=== PATIENT | male | born 1955 | race Caucasian/White ===

== ENCOUNTER 2024-11-02 11:43 | Inpatient (IN) | payer BC, MEDICARE, SELFPAY ==
[2024-11-01 11:43] VITALS: BP 120/106
[2024-11-01 11:46] VITALS: BP 173/87
--- NOTE | 2024-11-01 11:47 | ED.GENMED ---
ED Provider Triage
<Fernando Velazquez PA-C - Last Filed: 11/01/24 11:48>
-
Patient seen by provider in Triage?: Seen in Triage
68-year-old male presents via EMS from home with flulike symptoms for 6 days with associated weakness. No fever but patient notes a cough decreased appetite but no nausea or vomiting. He denies chest pain.
Vital signs are stable through triage. Will initiate work with basic labs chest x-ray COVID and flu testing
Seen by healthcare provider at triage but warrants further assessment
History of Present Illness
<Fernando Velazquez PA-C - Last Filed: 11/01/24 11:48>
General
Chief Complaint: Weakness
Time Seen by Provider: 11/01/24 16:30
<Ariana Horne NP - Last Filed: 11/01/24 16:50>
General
Source: patient and spouse
Exam Limitations: none
Nursing documentation reviewed up to this point in time: agreed with
History of Present Illness
History of Present Illness:
Patient to ED with complian of weakness, SOB, cough, fever. Symptoms started on Monday. states they were sure it was influenza as his daughter was recently diagnosed. Today he has been confused, weak, unable to transfer without max
assist. Brought to ED for eval.
Past History
<Ariana Horne NP - Last Filed: 11/01/24 16:50>
Past History
ED Past Medical History: None
Social History
Tobacco: Smoker (1ppd)
Alcohol: Daily (>3 beers/day)
Drug: Marijuana (smokes)
Personal:
Living: with family
Employment: Retired
Phy Exam
<Ariana Horne NP - Last Filed: 11/01/24 16:50>
General Physical Exam
General Presentation: moderate distress
General age: appears stated age
General Skin: warm and dry
General Habitus: normal
General Mental: alert
General Hydration: appears well hydrated
Cardiovascular Exam
Cardiovascular Exam: regular rate/rhythm
Pulmonary Exam
Pulmonary Exam: chest non tender
Breath Sounds: Crackles: left lower and right lower
Gastrointestinal Exam
Gastrointestinal Exam: normal bowel sounds, non tender and soft
Musculoskeletal Exam
Musculoskeletal Exam: full ROM and neuro vasc intact
Skin Exam
Skin Exam: normal color, warm/dry and no rash
Psychiatric Exam
Psychiatric Exam: normal mood/affect
Course
<Fernando Velazquez PA-C - Last Filed: 11/01/24 11:48>
Orders/Labs/Results
Orders:
Orders
11/01/24 11:46
CR Chest - 2 Views Urgent
Comment:
Reason For Exam: cough
11/01/24 11:58
COVID-19 Antigen Urgent
Source: Nasal Swab
Complete Blood Count/With Diff Urgent
Comprehensive Metabolic Panel Urgent
Influenza A+B Rapid Molecular Urgent
TOD Source: Nasal Swab
Specimen Description:
11/01/24 16:38
Azithromycin 500 mg/250 ml [Zithromax Infusion] 500 mg in 250 ml IV NOW
CefTRIAXone [Rocephin] 1,000 mg IV NOW STA
11/01/24 16:40
0.9% Sodium Chloride 1000 ml [Nss] 1,000 ml IV BOLUS
Abnormal Lab Results
11/01/24
11:58
Abs Immat Gran (auto) 0.1 H 10^3/uL
(0-0.05)
Absolute Neuts (auto) 6.6 H 10^3/uL
(1.4-6.5)
Absolute Lymphs (auto) 0.6 L 10^3/uL
(1.2-3.4)
Immature Gran % 0.8 H %
(0-0.5)
Neutrophils % 84.6 H %
(42.2-75.2)
Lymphocytes % 7.8 L %
(20.5-51.1)
Sodium 132 L mmol/L
(135-145)
Carbon Dioxide 20 L mmol/L
(22-30)
Creatinine 0.5 L mg/dL
(0.7-1.3)
Glucose 113 H mg/dl
(70-99)
AST 165 H U/L
(17-59)
ALT 92 H U/L
(0-50)
Total Protein 6.2 L g/dl
(6.3-8.2)
11/01/24 11:58
11/01/24 11:58
Vital Signs
Initial and Last Documented VS:
Initial Vital Signs
Temp Pulse Resp BP Pulse Ox
98.2 F 81 18 173/87 94
11/01/24 11:46 11/01/24 11:46 11/01/24 11:46 11/01/24 11:46 11/01/24 11:46
Last Documented Vital Signs
Temp Pulse Resp BP Pulse Ox
98.8 F 82 18 114/86 92
11/01/24 16:01 11/01/24 16:01 11/01/24 16:01 11/01/24 16:01 11/01/24 16:01
<Ariana Horne COAL DELIVERER - Last Filed: 11/01/24 16:50>
Orders/Labs/Results
Orders:
Orders
11/01/24 11:46
CR Chest - 2 Views Urgent
Comment:
Reason For Exam: cough
11/01/24 11:58
COVID-19 Antigen Urgent
Source: Nasal Swab
Complete Blood Count/With Diff Urgent
Comprehensive Metabolic Panel Urgent
Influenza A+B Rapid Molecular Urgent
TOD Source: Nasal Swab
Specimen Description:
11/01/24 16:38
Azithromycin 500 mg/250 ml [Zithromax Infusion] 500 mg in 250 ml IV NOW
CefTRIAXone [Rocephin] 1,000 mg IV NOW STA
11/01/24 16:40
0.9% Sodium Chloride 1000 ml [Nss] 1,000 ml IV BOLUS
Abnormal Lab Results
11/01/24
11:58
Abs Immat Gran (auto) 0.1 H 10^3/uL
(0-0.05)
Absolute Neuts (auto) 6.6 H 10^3/uL
(1.4-6.5)
Absolute Lymphs (auto) 0.6 L 10^3/uL
(1.2-3.4)
Immature Gran % 0.8 H %
(0-0.5)
Neutrophils % 84.6 H %
(42.2-75.2)
Lymphocytes % 7.8 L %
(20.5-51.1)
Sodium 132 L mmol/L
(135-145)
Carbon Dioxide 20 L mmol/L
(22-30)
Creatinine 0.5 L mg/dL
(0.7-1.3)
Glucose 113 H mg/dl
(70-99)
AST 165 H U/L
(17-59)
ALT 92 H U/L
(0-50)
Total Protein 6.2 L g/dl
(6.3-8.2)
11/01/24 11:58
11/01/24 11:58
Vital Signs
Initial and Last Documented VS:
Initial Vital Signs
Temp Pulse Resp BP Pulse Ox
98.2 F 81 18 173/87 94
11/01/24 11:46 11/01/24 11:46 11/01/24 11:46 11/01/24 11:46 11/01/24 11:46
Last Documented Vital Signs
Temp Pulse Resp BP Pulse Ox
98.8 F 82 18 114/86 92
11/01/24 16:01 11/01/24 16:01 11/01/24 16:01 11/01/24 16:01 11/01/24 16:01
<Ariana Horne NP - Last Filed: 11/01/24 16:50>
*Radiology
Radiology exam reviewed: radiology read reviewed
*Pulse Oximetry
Patient hypoxic: no
*Critical Care Note
Total Time (30-74mins, 75-104mins- exclusive of procedures): Not Applicable
<Ariana Horne NP - Last Filed: 11/01/24 16:50>
Update Note
Update Note:
Patient to ED with complaint of fever, cough, weakness. Symptoms started on Monday. Exposure to Influenza by daughter. Influenza pos today, symptoms present for almost a week now, tamiflu not indicated. reports increased weakness, periods
of confusion at home today. SPENCER with minimal activity. Labs reviewed. WBC normal. Elevated LFT's - he is a daily beer drinker. Course cough present. CXR reveals RLL pneumonia. +daily smoker (nicotine and marijuana). Pulse ox 95% RA at rest.
Becomes tachypnic with minimal activity. Requires max assist with transferring, dressing, due to weakness. WIll admit to hospitalist service. Antibiotics for pneumonia started in dept.
ED Attending Note
<Fernando Velazquez PA-C - Last Filed: 11/01/24 11:48>
-
Portions of this chart may have been created with voice recognition software.� Occasional wrong word or��sound alike� substitutions may have occurred due to the inherent limitations of voice recognition software.
Discharge Plan
Departure
Patient Disposition: Admit
Date of Disposition: 11/01/24
Time of Disposition: 16:48
Presentation/result/management discussed w/ accepting MD/DO: Hospitalist
Patient with high blood pressure during this ER visit?: No
Condition: Fair
Discharge Problem:
Influenza A, Pneumonia, Weakness
Interventions
Interventions:
*Risk Screen - Suicide Last Done: 11/01/24 11:46
*General Assessment Last Done: 11/01/24 11:46
*Neglect/Abuse Screening Last Done: 11/01/24 11:46
*ED COVID-19 Vaccine History Last Done: 11/01/24 11:46
Discharge Date and Time
Print Language: ESTONIAN
[2024-11-01 12:24] LABS: % Basophils 0.1 % (0-2); % Immature Granulocytes 0.8 % (0-0.5); % Lymphocytes 7.8 % (20.5-51.1); % Monocytes 6.7 % (1.7-9.3); % Neutrophils 84.6 % (42.2-75.2); Absolute Immature Granulocytes 0.1 10^3/uL (0-0.05); Absolute Lymphocytes 0.6 10^3/uL (1.2-3.4); Absolute Monocytes 0.5 10^3/uL (0.1-0.6); Absolute Neutrophils 6.6 10^3/uL (1.4-6.5); Hematocrit 42.3 % (39.0-52.0); Hemoglobin 14.9 g/dL (13.0-18.0); Mean Corp Hgb Conc. 35.2 g/dL (33.0-37.0); Mean Corpuscular Volume 85.1 fL (80.0-94.0); Mean Platelet Volume 9.6 fL (7.4-10.4); Nucleated Red Blood Cells % 0 % (-); Platelet Count 174 10^3/uL (130-400); Red Blood Cell Count 4.97 10^6/uL (4.70-6.10); Red Cell Dist. Width 13.1 % (11.5-14.5); White Blood Cell Count 7.8 10^3/uL (4.8-10.8)
[2024-11-01 12:37] LABS: ALT (SGPT) 92 U/L (0-50); AST (SGOT) 165 U/L (17-59); Albumin 3.7 g/dl (3.5-5.0); Alkaline Phosphatase 106 U/L (38-126); Blood Urea Nitrogen 13 mg/dl (9-20); Calcium 8.8 mg/dl (8.4-10.2); Carbon Dioxide 20 mmol/L (22-30); Chloride 100 mmol/L (98-107); Glucose 113 mg/dl (70-99); Potassium 4.1 mmol/L (3.5-5.1); Sodium 132 mmol/L (135-145); Total Protein 6.2 g/dl (6.3-8.2); eGFR > 60.00
[2024-11-01 12:42] LABS: COVID-19 Antigen Negative (Negative)
[2024-11-01 16:01] VITALS: BP 114/86
--- NOTE | 2024-11-01 17:05 | HPS.HSE ---
Family Physician
-
Family Physician: Russell Toney
Chief Complaint
-
cough
History of Present Illness
68-year-old male past medical history of arthritis, presenting with weakness, shortness breath, cough and fever, body aches starting 6 days ago. Daughter recently had influenza. Today patient was confused, weak and unable to transfer without max
assist. He thought he was in [place] today and has been having cognitive decline noted today. Denies nausea vomiting or diarrhea.
He was smoking three fourths of a pack of cigarettes until 2 weeks ago. He used to drink alcohol.
He was told that he had hepatic sclerosis in the past on a CT scan.
Medical History
Past Medical History
Past Medical History: Reports Other (arthritis)
Past Surgical History: Reports None
Social History
Tobacco: Former Smoker
Alcohol: Former
Drug: None
Family History
Family History: Not pertinent
Allergies / Home Medications
Allergies reflects when Allergies were last updated in [facility].
Home Medications with original date entered in [facility]
Allergy/Medication List:
Allergies
Allergy/AdvReac Type Severity Reaction Status Date / Time
No Known Allergies Allergy Verified 11/01/24 11:50
Home Medications
naproxen sodium 220 mg tablet (Aleve) 440 mg PO BIDPRN PRN mild pain 11/01/24
Review of Systems
-
History Source: Patient
A 12 point ROS was completed and negative except as noted: Yes
Constitutional: Reports No Symptoms
EENT: Reports No Symptoms
Respiratory: Reports See HPI
Cardiac: Reports No Symptoms
Abdomen/GI: Reports No Symptoms
: Reports No Symptoms
Musculoskeletal: Reports No Symptoms
Skin: Reports No Symptoms
Neurological: Reports No Symptoms
Endocrine: Reports No Symptoms
Hematologic/Lymphatic: Reports No Symptoms
Psych: Reports No Symptoms
Physical Exam
Vital Signs
Vital Signs
Temp Pulse Resp BP Pulse Ox
98.8 F 82 18 114/86 92
11/01/24 16:01 11/01/24 16:01 11/01/24 16:01 11/01/24 16:01 11/01/24 16:01
Physical Exam
General: Well Developed, Well Nourished and No Apparent Distress
HEENT: NormoCephalic, Moist mucous membranes and Atraumatic
Respiratory: Clear
Cardiac: S1/S2 and Regular Rhythm; No Murmur or Rub
GI: Soft, Non Tender, Non Distended and Normal Bowel Sounds; No Organomegaly
Rectal: Deferred by Provider
Musculoskeletal: No Clubbing, No Cyanosis and No Edema
Skin: No Rash
Neuro: Nonfocal/grossly intact
Laboratory Results
-
11/01/24 11:58
11/01/24 11:58
Laboratory Results
Total Bilirubin 1.0 mg/dl (0.2-1.3) 11/01/24 11:58
AST 165 U/L (17-59) H 11/01/24 11:58
ALT 92 U/L (0-50) H 11/01/24 11:58
Alkaline Phosphatase 106 U/L (38-126) 11/01/24 11:58
Data Reviewed
-
Lab Data: Labs Reviewed by me
Old Records: Reviewed
Impression/Plan
-
IMPRESSION:
PLAN:
# Right lower lobe influenza pneumonia
-Chest x-ray shows right lower lobe pneumonia
-Influenza A positive
-Check sputum culture
-Well out of window for Tamiflu
-Can continue ceftriaxone/azithromycin for now
# Transaminitis secondary to influenza
-Continue to monitor
Arthritis
-Continue naproxen
Recent smoker
History of former alcohol use
Full code
DVT prophylaxis�heparin
Regular diet
[2024-11-01] MEDS: ROCEPHIN 1000 MG IV (17:27)
[2024-11-01] MEDS: ZITHROMAX INFUSION 250 IV (17:27)
[2024-11-01] MEDS: NSS 1000 IV (17:27)
[2024-11-01 18:44] VITALS: BP 163/84
[2024-11-01 20:21] VITALS: BP 156/104
[2024-11-01] MEDS: HEPARIN 5000 UNITS SC (20:54)
[2024-11-02] VITALS (9 sets, daily range): BP systolic 131–172; BP diastolic 75–85; PULSE 78–93; O2SAT 93
[2024-11-02 06:19] LABS: Hematocrit 34.6 % (39.0-52.0); Hemoglobin 12.3 g/dL (13.0-18.0); Mean Corp Hgb Conc. 35.5 g/dL (33.0-37.0); Mean Corpuscular Volume 87.2 fL (80.0-94.0); Platelet Count 167 10^3/uL (130-400); Red Blood Cell Count 3.97 10^6/uL (4.70-6.10); White Blood Cell Count 6.5 10^3/uL (4.8-10.8)
[2024-11-02 06:24] LABS: ALT (SGPT) 62 U/L (0-50); AST (SGOT) 80 U/L (17-59); Albumin 2.7 g/dl (3.5-5.0); Alkaline Phosphatase 79 U/L (38-126); Blood Urea Nitrogen 12 mg/dl (9-20); Calcium 7.7 mg/dl (8.4-10.2); Carbon Dioxide 23 mmol/L (22-30); Chloride 102 mmol/L (98-107); Glucose 87 mg/dl (70-99); Sodium 133 mmol/L (135-145); Total Bilirubin 0.9 mg/dl (0.2-1.3); eGFR > 60.00
[2024-11-02 08:10] LABS: % Basophils 0.2 % (0-2); % Eosinophils 0.3 % (0-6); % Immature Granulocytes 0.5 % (0-0.5); % Lymphocytes 19.4 % (20.5-51.1); % Monocytes 9.9 % (1.7-9.3); % Neutrophils 69.7 % (42.2-75.2); Absolute Lymphocytes 1.3 10^3/uL (1.2-3.4); Absolute Monocytes 0.6 10^3/uL (0.1-0.6); Absolute Neutrophils 4.5 10^3/uL (1.4-6.5); Nucleated Red Blood Cells % 0 % (-)
--- NOTE | 2024-11-02 11:37 | W.PN.HOSP.TC ---
Today's Communication/Plan
-
Continue antibiotics
Check GGT, serum osmolality
Check urine antigens
Urine osmolarity, urine sodium
Fluid restriction
Assessment / Plan
Assessment / Plan
Gen-AAOx3, NAD
HEENT-NC, AT, anicteric, clear oral mm
Neck-supple
CV-reg, no M, +S1/S2
Lungs-clear B/L
Abd-soft, NT, ND
Ext-no edema
Musculoskeletal-no cyanosis, clubbing
Skin-warm and dry
Neuro-grossly non-focal
Psych-calm, cooperative
Acute hypoxic respiratory insufficiency -due to community-acquired pneumonia, influenza infection. Stable on 3 L, wean down as able.
Right lower lobe community-acquired pneumonia -continue current antibiotics. Check urinary antigens. Chest x-ray noted.
Acute influenza A infection -symptoms started 7 days ago. Out of the window for Tamiflu.
Hyponatremia -suspect SIADH related to acute illness, pneumonia. Check urine studies. Fluid restriction.
Elevated transaminases -unclear etiology. Check GGT.
Tobacco dependence -reportedly quit smoking 2 weeks ago.
Alcohol use disorder -reportedly last drink was 2 weeks ago.
Full code
Anticipated Discharge: 24 - 48 hours
Subjective/Interval History
-
Date of Service: November 02, 2024
Patient seen and examined. Starting to feel better. Less weakness. Still with cough, mild dyspnea on exertion.
Objective Data
-
Labs:
Laboratory Results
11/02/24
05:54
WBC 6.5
Hgb 12.3 L
Hct 34.6 L
Plt Count 167
Sodium 133 L
Potassium 4.0
Chloride 102
Carbon Dioxide 23
BUN 12
Creatinine 0.7
Glucose 87
Calcium 7.7 L
Total Bilirubin 0.9
AST 80 H
ALT 62 H
Alkaline Phosphatase 79
Vital Signs:
Vital Signs
Temp Pulse Resp BP Pulse Ox
97.8 F 73 20 153/83 90
11/01/24 23:32 11/02/24 11:21 11/02/24 11:21 11/02/24 10:06 11/02/24 10:05
I&O
11/01/24 11/02/24 11/03/24
06:59 06:59 06:59
Intake Total 480 / 480
Output Total 600 / 600
Balance -120 / -120
Review of Systems
-
History Source: Patient
All other systems: Reviewed and negative
[2024-11-02 12:24] LABS: GGTP 33 U/L (15-73)
[2024-11-02 12:32] LABS: Osmolality Serum 271 mOsm/kg (275-300)
[2024-11-02] MEDS: HEPARIN SC (13:07)
[2024-11-02 15:16] LABS: Urine Sodium 69 mmol/L (30-90)
[2024-11-02 15:23] LABS: Osmolality Urine 614 mOsm/kg (300-900)
[2024-11-02] MEDS: ZITHROMAX INFUSION 250 IV (16:37)
[2024-11-02] MEDS: STERILE WATER FOR INJECTION 10 ML IV (16:38)
[2024-11-02] MEDS: ROCEPHIN 1000 MG IV (16:38)
[2024-11-02] MEDS: HEPARIN 5000 UNITS SC (19:59)
[2024-11-03 00:21] VITALS: BP 182/81
[2024-11-03 01:15] VITALS: BP 165/83
[2024-11-03 07:20] VITALS: BP 176/87
[2024-11-03] MEDS: HEPARIN 5000 UNITS SC ×2 (08:18→20:40)
[2024-11-03 08:20] LABS: ALT (SGPT) 60 U/L (0-50); AST (SGOT) 59 U/L (17-59); Albumin 2.9 g/dl (3.5-5.0); Alkaline Phosphatase 82 U/L (38-126); Blood Urea Nitrogen 12 mg/dl (9-20); Calcium 7.9 mg/dl (8.4-10.2); Carbon Dioxide 23 mmol/L (22-30); Chloride 102 mmol/L (98-107); Glucose 88 mg/dl (70-99); Potassium 3.9 mmol/L (3.5-5.1); Sodium 132 mmol/L (135-145); Total Bilirubin 0.6 mg/dl (0.2-1.3); Total Protein 5.2 g/dl (6.3-8.2); eGFR > 60.00
[2024-11-03] MEDS: TAMIFLU 75 MG PO ×2 (11:26→20:41)
--- NOTE | 2024-11-03 12:07 | W.PN.HOSP.TC ---
Addendum entered and electronically signed by Alessandro Vicente DO 11/03/24 13:04:
Mild nontraumatic rhabdomyolysis -CPK 636. Encourage p.o. fluids.
Original Note:
Today's Communication/Plan
-
CPK
Ambulatory pulse ox on room air
Acapella, incentive spirometer
Assessment / Plan
Assessment / Plan
Gen-AAOx3, NAD
HEENT-NC, AT, anicteric, clear oral mm
Neck-supple
CV-reg, no M, +S1/S2
Lungs-clear B/L
Abd-soft, NT, ND
Ext-no edema
Musculoskeletal-no cyanosis, clubbing
Skin-warm and dry
Neuro-grossly non-focal
Psych-calm, cooperative
Acute hypoxic respiratory insufficiency -due to community-acquired pneumonia, influenza infection. Stable on 3 L, wean down as able. Check ambulatory pulse ox on room air.
Right lower lobe community-acquired pneumonia -continue current antibiotics. Chest x-ray noted. Urinary antigens negative. Sputum culture with usual respiratory christie.
Acute influenza A infection -symptoms started 6 days prior to admission. Nevertheless, we will treat with Tamiflu.
Hyponatremia -suspect SIADH related to acute illness, pneumonia. Sodium stable. Serum osmolality 271. Urine osmolality 614, urine sodium 69. Fluid restriction.
Elevated blood pressure -likely undiagnosed and untreated essential hypertension. 176/87 this morning. Start low-dose Procardia.
Elevated transaminases - GGT normal. Check CPK.
Severe right hip OA -patient states he is overdue for hip replacement. Pain intensity has been stable.
Tobacco dependence -reportedly quit smoking 2 weeks ago.
Alcohol use disorder -reportedly last drink was 2 weeks ago.
Full code
PT/OT -Home health recommended.
Dispo -possible discharge in the next 24 hours if he remains stable. Check ambulatory pulse ox on room air.
Anticipated Discharge: Within 24 hours
Subjective/Interval History
-
Date of Service: November 03, 2024
Patient seen and examined. Overall feeling better. Complaining of chronic right hip pain.
Objective Data
-
Labs:
Laboratory Results
11/03/24
07:35
Sodium 132 L
Potassium 3.9
Chloride 102
Carbon Dioxide 23
BUN 12
Creatinine 0.7
Glucose 88
Calcium 7.9 L
Total Bilirubin 0.6
AST 59
ALT 60 H
Alkaline Phosphatase 82
Vital Signs:
Vital Signs
Temp Pulse Resp BP Pulse Ox
97.9 F 66 18 176/87 97
11/03/24 07:20 11/03/24 07:20 11/03/24 07:20 11/03/24 07:20 11/03/24 07:20
I&O
11/02/24 11/03/24 11/04/24
06:59 06:59 06:59
Intake Total 480 / 480 360 / 360 240 / 240
Output Total 600 / 600 450 / 450 400 / 400
Balance -120 / -120 -90 / -90 -160 / -160
Review of Systems
-
History Source: Patient
All other systems: Reviewed and negative
[2024-11-03 12:42] LABS: Creatine Phosphokinase 636 U/L (55-170)
[2024-11-03] MEDS: PROCARDIA XL (EXTENDED RELEASE) 30 MG PO (13:09)
[2024-11-03 15:37] VITALS: BP 167/82
[2024-11-03] MEDS: STERILE WATER FOR INJECTION 10 ML IV (17:03)
--- NOTE | 2024-11-03 17:03 | CM ---
manager customer service reviewed patient's chart and met with patient and spouse at bedside. Patient lives with family in a 2 story home, with 6 steps to enter, patient is independent with adl's and ambulation, no dme, patient declined the need for visiting
nurses at discharge.
PCP: Russell Toney
Pharmacy: [facility]
Plan; Home with spouse when stable.
[2024-11-03] MEDS: ROCEPHIN 1000 MG IV (17:04)
[2024-11-03] MEDS: ZITHROMAX INFUSION 250 IV (17:13)
[2024-11-03 23:17] VITALS: BP 132/69
[2024-11-04 07:24] VITALS: BP 153/80
[2024-11-04 08:24] LABS: ALT (SGPT) 51 U/L (0-50); AST (SGOT) 42 U/L (17-59); Alkaline Phosphatase 88 U/L (38-126); Blood Urea Nitrogen 9 mg/dl (9-20); Calcium 8.3 mg/dl (8.4-10.2); Carbon Dioxide 21 mmol/L (22-30); Chloride 101 mmol/L (98-107); Glucose 87 mg/dl (70-99); Sodium 132 mmol/L (135-145); Total Bilirubin 0.5 mg/dl (0.2-1.3); Total Protein 5.4 g/dl (6.3-8.2); eGFR > 60.00
--- NOTE | 2024-11-04 09:26 | W.PN.HOSP.TC ---
Today's Communication/Plan
-
Tamiflu. Abx. Discharge planning
Assessment / Plan
Assessment / Plan
Gen-AAOx3, NAD
HEENT-NC, AT, anicteric, clear oral mm
Neck-supple
CV-reg, no M, +S1/S2
Lungs-clear B/L
Abd-soft, NT, ND
Ext-no edema
Musculoskeletal-no cyanosis, clubbing
Skin-warm and dry
Neuro-grossly non-focal
Psych-calm, cooperative
A/P:
Acute hypoxic respiratory insufficiency -due to community-acquired pneumonia, influenza infection. Stable on room air. Discussed about discharge and pte does feel ready and states he's going to 'rehab'. CM eval.
Right lower lobe community-acquired pneumonia -continue current antibiotics. Chest x-ray noted. Urinary antigens negative. Sputum culture with usual respiratory christie.
Acute influenza A infection -symptoms started 6 days prior to admission. Nevertheless, we will treat with Tamiflu.
Mild elevated CPK-no need to treat
Hyponatremia -suspect SIADH related to acute illness, pneumonia. Sodium stable. Serum osmolality 271. Urine osmolality 614, urine sodium 69. Fluid restriction.
Elevated blood pressure -likely undiagnosed and untreated essential hypertension. 176/87 this morning. Start low-dose Procardia.
Elevated transaminases - GGT normal.
Severe right hip OA -patient states he is overdue for hip replacement. Pain intensity has been stable.
Tobacco dependence -reportedly quit smoking 2 weeks ago.
Alcohol use disorder -reportedly last drink was 2 weeks ago.
Full code
Anticipated Discharge: Within 24 hours
Subjective/Interval History
-
Date of Service: November 04, 2024
Patient feels better overall today. Less cough and less shortness of breath. Afebrile
Objective Data
-
Labs:
Laboratory Results
11/04/24
07:06
Sodium 132 L
Potassium 4.0
Chloride 101
Carbon Dioxide 21 L
BUN 9
Creatinine 0.6 L
Glucose 87
Calcium 8.3 L
Total Bilirubin 0.5
AST 42
ALT 51 H
Alkaline Phosphatase 88
Vital Signs:
Vital Signs
Temp Pulse Resp BP Pulse Ox
97.6 F 71 16 153/80 93
11/04/24 07:24 11/04/24 07:24 11/04/24 07:24 11/04/24 07:24 11/04/24 07:24
I&O
11/03/24 11/04/24 11/05/24
06:59 06:59 06:59
Intake Total 360 / 360 1680 / 1680
Output Total 450 / 450 1250 / 1250
Balance -90 / -90 430 / 430
[2024-11-04] MEDS: PROCARDIA XL (EXTENDED RELEASE) 30 MG PO (09:33)
[2024-11-04] MEDS: HEPARIN 5000 UNITS SC ×2 (09:33→19:22)
[2024-11-04] MEDS: TAMIFLU 75 MG PO ×2 (09:33→19:22)
[2024-11-04 15:30] VITALS: BP 133/83
[2024-11-04] MEDS: STERILE WATER FOR INJECTION 10 ML IV (17:31)
[2024-11-04] MEDS: ROCEPHIN 1000 MG IV (17:31)
[2024-11-04] MEDS: ZITHROMAX INFUSION 250 IV (17:31)
[2024-11-04 23:20] VITALS: BP 118/76
[2024-11-05 07:45] VITALS: BP 164/86
[2024-11-05] MEDS: TAMIFLU 75 MG PO ×2 (08:23→19:23)
[2024-11-05] MEDS: PROCARDIA XL (EXTENDED RELEASE) 30 MG PO (08:23)
[2024-11-05] MEDS: HEPARIN 5000 UNITS SC ×2 (08:24→19:22)
--- NOTE | 2024-11-05 08:26 | W.PN.HOSP.TC ---
Addendum entered and electronically signed by Juan Campoverde MD 11/05/24 14:40:
Pressure injury bilateral buttocks stage II, POA
Pressure injury bilateral heels stage I, POA
Original Note:
Today's Communication/Plan
-
Discharge planning
Assessment / Plan
Assessment / Plan
Gen-AAOx3, NAD
HEENT-NC, AT, anicteric, clear oral mm
Neck-supple
CV-reg, no M, +S1/S2
Lungs-clear B/L
Abd-soft, NT, ND
Ext-no edema
Musculoskeletal-no cyanosis, clubbing
Skin-warm and dry
Neuro-grossly non-focal
Psych-calm, cooperative
A/P:
Acute hypoxic respiratory insufficiency -due to community-acquired pneumonia, influenza infection. Stable on room air. Discussed about discharge and pte does feel ready and states he's going to 'rehab'. DWIGHT [facility]. planning discharge today
Right lower lobe community-acquired pneumonia -continue current antibiotics but switch to oral. Chest x-ray noted. Urinary antigens negative. Sputum culture with usual respiratory christie.
Acute influenza A infection -symptoms started 6 days prior to admission. Nevertheless, we will treat with Tamiflu.
Mild elevated CPK-no need to treat
Hyponatremia -suspect SIADH related to acute illness, pneumonia. Sodium stable. Serum osmolality 271. Urine osmolality 614, urine sodium 69. Fluid restriction.
Elevated blood pressure -likely undiagnosed and untreated essential hypertension. 176/87 this morning. Start low-dose Procardia.
Elevated transaminases - GGT normal.
Severe right hip OA -patient states he is overdue for hip replacement. Pain intensity has been stable.
Tobacco dependence -reportedly quit smoking 2 weeks ago.
Alcohol use disorder -reportedly last drink was 2 weeks ago.
Full code
Anticipated Discharge: Today
Subjective/Interval History
-
Date of Service: November 05, 2024
Patient feels well. On room air. Afebrile
Objective Data
-
Vital Signs:
Vital Signs
Temp Pulse Resp BP Pulse Ox
97.8 F 72 18 164/86 94
11/05/24 07:45 11/05/24 07:45 11/05/24 07:45 11/05/24 07:45 11/05/24 07:45
I&O
11/04/24 11/05/24 11/06/24
06:59 06:59 06:59
Intake Total 1680 / 1680 1440 / 1440
Output Total 1250 / 1250 1125 / 1125
Balance 430 / 430 315 / 315
--- NOTE | 2024-11-05 08:47 | PN.CDI ---
CDI
- -
CDI:
Physician Documentation Request
Admit Date: 11/02/24 11:43
Dear Doctor Nirali,
Patient admitted for pneumonia.
Selected Entries
11/03/24
20:15
Pressure injury appearance [Present on admission Bilateral Buttock] [place] wound bed
Pressure injury stage [Present on admission Bilateral Buttock] Stage 2
Surrounding Skin - [Present on admission Bilateral Buttock] Local erythema
11/03/24
20:15
Pressure injury stage [Present on admission Bilateral Heel] Stage 1
Surrounding Skin - [Present on admission Bilateral Heel] Dry and intact
Treatment provided [Present on admission Bilateral Heel] Adhesive foam
Physician documentation of the type and location of wounds is required for compliant documentation. Based on the above clinical findings and your assessment, please provide the following in your progress note:
1. Location of the ulcer/wound, including laterality.
2. Type (etiology) of ulcer/wound:
- Diabetic ulcer
- Arterial (ischemic) ulcer
- Traumatic wound
- Venous stasis ulcer
- Pressure (decubitus) ulcer
- Non-healing surgical wound
- Other
- Unable to determine
3. For a non-pressure ulcer, please indicate the depth/severity:
- Limited to the breakdown of skin
- With fat layer exposed
- With necrosis of muscle
- With necrosis of bone
- Other
- Unable to determine
4. If a pressure ulcer, please also include the stage* of the ulcer:
- Stage 1 - Skin intact, non-blanchable redness
- Stage 2 - Partial thickness loss of dermis, includes intact or open blister
- Stage 3 - Full thickness tissue not including bone, tendon or muscle
- Stage 4 - Full thickness tissue loss, including exposed bone, tendon or muscle
- Unstageable - Full thickness loss in which the base of the ulcer is covered by slough (yellow, obrien, naranjo, green or brown) and/or eschar (obrien, brown or black) in the wound bed.
- Unable to determine
Use of terms such as suspected, likely, concern for, or probable (associated with a specific diagnosis that is being evaluated, monitored, or treated as if it exists) are acceptable and can be coded in the inpatient setting, when documented at the
time of discharge.
Thank you,
Karma Lanier RN, BSN
CDI Specialist
Available via [employer] text
Please use your independent medical judgment in providing your response.
*Source: National Pressure Ulcer Advisory Panel (NPUAP)
[2024-11-05 10:21] VITALS: BP 139/71; PULSE 68; O2SAT 95
[2024-11-05] MEDS: ZITHROMAX 500 MG PO (11:50)
--- NOTE | 2024-11-05 12:53 | CM ---
CM reviewed chart, patient seen bedside, discussed PT recommendations of SNF. Patient agreeable to rehab, requesting referrals to local facilities, CM will provide list of local SNFS for patient. Patient will need insurance auth once bed found. CM
will continue to follow for all discharge planning needs.
Plan; SNF once accepting facility found, will require insurance auth.
[2024-11-05] MEDS: ROCEPHIN 1000 MG IV (15:07)
[2024-11-05] MEDS: STERILE WATER FOR INJECTION 10 ML IV (15:07)
[2024-11-05 15:54] VITALS: BP 173/91
[2024-11-05] MEDS: ZESTRIL 5 MG PO (16:21)
[2024-11-05] MEDS: APRESOLINE 10 MG IV (16:21)
[2024-11-05 23:23] VITALS: BP 147/65
[2024-11-06 07:28] VITALS: BP 174/84
[2024-11-06] MEDS: HEPARIN 5000 UNITS SC ×2 (08:12→19:40)
[2024-11-06] MEDS: PROCARDIA XL (EXTENDED RELEASE) 30 MG PO (08:13)
[2024-11-06] MEDS: TAMIFLU 75 MG PO ×2 (08:13→19:40)
[2024-11-06] MEDS: ZESTRIL 5 MG PO (08:13)
[2024-11-06] MEDS: ZITHROMAX 500 MG PO (08:13)
--- NOTE | 2024-11-06 09:48 | W.PN.HOSP.TC ---
Today's Communication/Plan
-
Discharge planning in progress
Assessment / Plan
Assessment / Plan
Gen-AAOx3, NAD
HEENT-NC, AT, anicteric, clear oral mm
Neck-supple
CV-reg, no M, +S1/S2
Lungs-clear B/L
Abd-soft, NT, ND
Ext-no edema
Musculoskeletal-no cyanosis, clubbing
Skin-warm and dry
Neuro-grossly non-focal
Psych-calm, cooperative
A/P:
Acute hypoxic respiratory insufficiency -due to community-acquired pneumonia, influenza infection. Stable on room air. Discussed about discharge and pte does feel ready and states he's going to 'rehab'. DWIGHT morton. planning discharge today
Right lower lobe community-acquired pneumonia -continue current antibiotics but switch to oral. Chest x-ray noted. Urinary antigens negative. Sputum culture with usual respiratory christie.
Acute influenza A infection -symptoms started 6 days prior to admission. Nevertheless, we will treat with Tamiflu.
Mild elevated CPK-no need to treat
Hyponatremia -suspect SIADH related to acute illness, pneumonia. Sodium stable. Serum osmolality 271. Urine osmolality 614, urine sodium 69. Fluid restriction.
Elevated blood pressure -likely undiagnosed and untreated essential hypertension. 176/87 this morning. Start low-dose Procardia.
Elevated transaminases - GGT normal.
Severe right hip OA -patient states he is overdue for hip replacement. Pain intensity has been stable.
Tobacco dependence -reportedly quit smoking 2 weeks ago.
Alcohol use disorder -reportedly last drink was 2 weeks ago.
Full code
Anticipated Discharge: Within 24 hours
Subjective/Interval History
-
Date of Service: November 06, 2024
Less cough and shortness of breath. On room air. Afebrile
Objective Data
-
Vital Signs:
Vital Signs
Temp Pulse Resp BP Pulse Ox
97.7 F 71 18 174/84 94
11/06/24 07:28 11/06/24 07:28 11/06/24 07:28 11/06/24 07:28 11/06/24 07:28
I&O
11/05/24 11/06/24 11/07/24
06:59 06:59 06:59
Intake Total 1440 / 1440 720 / 720
Output Total 1125 / 1125 925 / 925
Balance 315 / 315 -205 / -205
--- NOTE | 2024-11-06 12:42 | CM ---
Chart reviewed and patient has been denied at [facility], [place] and [facility] per admissions at [facility] they do not have a contract with [facility]. Patient has been accepted at [facility] and [facility]
and rehab, and will need Auth for skilled placement.
Plan; Skilled placement.
[2024-11-06] MEDS: ROCEPHIN 1000 MG IV (15:21)
[2024-11-06] MEDS: STERILE WATER FOR INJECTION 10 ML IV (15:21)
[2024-11-06 15:29] VITALS: BP 151/76
[2024-11-06 23:14] VITALS: BP 159/75
[2024-11-07] MEDS: HEPARIN 5000 UNITS SC ×2 (07:46→20:53)
[2024-11-07] MEDS: ZITHROMAX 500 MG PO (07:47)
[2024-11-07] MEDS: ZESTRIL 5 MG PO (07:47)
[2024-11-07] MEDS: PROCARDIA XL (EXTENDED RELEASE) 30 MG PO (07:47)
[2024-11-07] MEDS: TAMIFLU 75 MG PO ×2 (07:47→20:52)
[2024-11-07 08:00] VITALS: BP 170/81
--- NOTE | 2024-11-07 08:57 | W.PN.HOSP.TC ---
Today's Communication/Plan
-
Discharge planning in progress
Assessment / Plan
Assessment / Plan
Gen-AAOx3, NAD
HEENT-NC, AT, anicteric, clear oral mm
Neck-supple
CV-reg, no M, +S1/S2
Lungs-clear B/L
Abd-soft, NT, ND
Ext-no edema
Musculoskeletal-no cyanosis, clubbing
Skin-warm and dry
Neuro-grossly non-focal
Psych-calm, cooperative
A/P:
Acute hypoxic respiratory insufficiency -due to community-acquired pneumonia, influenza infection. Stable on room air. Discussed about discharge and pte does feel ready and states he's going to 'rehab'. DWIGHT morton. planning discharge today
Right lower lobe community-acquired pneumonia -continue current antibiotics but switch to oral. Chest x-ray noted. Urinary antigens negative. Sputum culture with usual respiratory christie.
Acute influenza A infection -symptoms started 6 days prior to admission. Nevertheless, we will treat with Tamiflu.
Mild elevated CPK-no need to treat
Hyponatremia -suspect SIADH related to acute illness, pneumonia. Sodium stable. Serum osmolality 271. Urine osmolality 614, urine sodium 69. Fluid restriction.
Elevated blood pressure -likely undiagnosed and untreated essential hypertension. 176/87 this morning. Start low-dose Procardia.
Elevated transaminases - GGT normal.
Severe right hip OA -patient states he is overdue for hip replacement. Pain intensity has been stable.
Tobacco dependence -reportedly quit smoking 2 weeks ago.
Alcohol use disorder -reportedly last drink was 2 weeks ago.
Full code
Anticipated Discharge: Today
Subjective/Interval History
-
Date of Service: November 07, 2024
No new complaints. Feels better today.
Objective Data
-
Vital Signs:
Vital Signs
Temp Pulse Resp BP Pulse Ox
98.4 F 64 18 170/81 95
11/06/24 23:14 11/06/24 23:14 11/06/24 23:14 11/07/24 07:47 11/06/24 23:14
I&O
11/06/24 11/07/24 11/08/24
06:59 06:59 06:59
Intake Total 720 / 720 960 / 960
Output Total 925 / 925 1690 / 1690
Balance -205 / -205 -730 / -730
[2024-11-07 12:24] VITALS: BP 152/84
--- NOTE | 2024-11-07 12:27 | CM ---
CM reviewed chart, [facility] and [facility] now do not have any available beds, referrals sent to [facility], and [facility]. Patient seen bedside, agreeable to additional referrals to be placed. Patient will require
insurance authorization once bed found, will need updated PT/OT.
Plan; additional SNF referrals sent, awaiting accepting facility, will require auth.
[2024-11-07 14:04] VITALS: PULSE 67; O2SAT 96
[2024-11-07] MEDS: STERILE WATER FOR INJECTION 10 ML IV (15:43)
[2024-11-07] MEDS: ROCEPHIN 1000 MG IV (15:44)
[2024-11-07 16:00] VITALS: BP 148/69
[2024-11-07 23:14] VITALS: BP 140/78
[2024-11-08] MEDS: ZESTRIL 5 MG PO (08:16)
[2024-11-08] MEDS: ZITHROMAX 500 MG PO (08:16)
[2024-11-08] MEDS: PROCARDIA XL (EXTENDED RELEASE) 60 MG PO (08:16)
[2024-11-08] MEDS: TAMIFLU 75 MG PO (08:17)
[2024-11-08] MEDS: HEPARIN 5000 UNITS SC ×2 (08:17→20:20)
[2024-11-08 08:18] VITALS: BP 143/71
--- NOTE | 2024-11-08 10:19 | W.PN.HOSP.TC ---
Today's Communication/Plan
-
Discharge planning in progress
Assessment / Plan
Assessment / Plan
Gen-AAOx3, NAD
HEENT-NC, AT, anicteric, clear oral mm
Neck-supple
CV-reg, no M, +S1/S2
Lungs-clear B/L
Abd-soft, NT, ND
Ext-no edema
Musculoskeletal-no cyanosis, clubbing
Skin-warm and dry
Neuro-grossly non-focal
Psych-calm, cooperative
A/P:
Acute hypoxic respiratory insufficiency -due to community-acquired pneumonia, influenza infection. Stable on room air. Discussed about discharge and pte does feel ready and states he's going to 'rehab'. DWIGHT morton. planning discharge today
Right lower lobe community-acquired pneumonia -continue antibiotics but switch to oral. Chest x-ray noted. Urinary antigens negative. Sputum culture with usual respiratory christie.
Acute influenza A infection -symptoms started 6 days prior to admission. Nevertheless, we will treat with Tamiflu.
Mild elevated CPK-no need to treat
Hyponatremia -suspect SIADH related to acute illness, pneumonia. Sodium stable. Serum osmolality 271. Urine osmolality 614, urine sodium 69. Fluid restriction.
Elevated blood pressure -likely undiagnosed and untreated essential hypertension. 176/87 this morning. Start low-dose Procardia.
Elevated transaminases - GGT normal.
Severe right hip OA -patient states he is overdue for hip replacement. Pain intensity has been stable.
Tobacco dependence -reportedly quit smoking 2 weeks ago.
Alcohol use disorder -reportedly last drink was 2 weeks ago.
Full code
Anticipated Discharge: 24 - 48 hours
Subjective/Interval History
-
Date of Service: November 08, 2024
Patient feels better overall. Afebrile
Objective Data
-
Vital Signs:
Vital Signs
Temp Pulse Resp BP Pulse Ox
98.0 F 59 18 143/71 94
11/08/24 08:18 11/08/24 08:18 11/08/24 08:18 11/08/24 08:18 11/08/24 08:18
I&O
11/07/24 11/08/24 11/09/24
06:59 06:59 06:59
Intake Total 960 / 960 720 / 720
Output Total 1690 / 1690 700 / 700
Balance -730 / -730
[2024-11-08 12:09] VITALS: BP 119/70; PULSE 79; O2SAT 94
[2024-11-08] MEDS: OMNICEF 300 MG PO ×2 (12:38→20:20)
[2024-11-08 14:39] LABS: % Basophils 0.6 % (0-2); % Eosinophils 1.2 % (0-6); % Immature Granulocytes 0.6 % (0-0.5); % Lymphocytes 23.7 % (20.5-51.1); % Monocytes 9.1 % (1.7-9.3); % Neutrophils 64.8 % (42.2-75.2); Absolute Eosinophils 0.1 10^3/uL (0-0.7); Absolute Lymphocytes 1.6 10^3/uL (1.2-3.4); Absolute Monocytes 0.6 10^3/uL (0.1-0.6); Absolute Neutrophils 4.4 10^3/uL (1.4-6.5); Hematocrit 43.8 % (39.0-52.0); Hemoglobin 15.4 g/dL (13.0-18.0); Mean Corp Hgb Conc. 35.2 g/dL (33.0-37.0); Mean Corpuscular Hgb 30.6 pg (27.0-31.0); Mean Corpuscular Volume 87.1 fL (80.0-94.0); Mean Platelet Volume 8.6 fL (7.4-10.4); Nucleated Red Blood Cells % 0 % (-); Platelet Count 487 10^3/uL (130-400); Red Blood Cell Count 5.03 10^6/uL (4.70-6.10); White Blood Cell Count 6.7 10^3/uL (4.8-10.8)
[2024-11-08 14:51] LABS: Blood Urea Nitrogen 17 mg/dl (9-20); Calcium 9.1 mg/dl (8.4-10.2); Carbon Dioxide 22 mmol/L (22-30); Chloride 100 mmol/L (98-107); Glucose 99 mg/dl (70-99); Potassium 4.6 mmol/L (3.5-5.1); Sodium 133 mmol/L (135-145); eGFR > 60.00
--- NOTE | 2024-11-08 15:28 | CM ---
Addendum entered by Genesis Carrasco 11/08/24 16:11:
CM received call from Daly at [facility] [phone], discussed will need to review patients therapy again on Monday, will need CM to call [facility] ( ) to resubmit therapy notes as auth will likely go to medical sociologist.
Plan; Auth remains pending, will need to call [facility] on Monday to resubmit therapy notes
Original Note:
Patient seen bedside, discussed [facility] able to accept for short term rehab. Auth submitted to [facility] ( ), pending auth #[id number], will receive call once auth approved. CM will continue to follow for all discharge planning
needs.
Plan; [facility], auth pending, reference #[id number]
[2024-11-08 16:00] VITALS: BP 152/79
[2024-11-08 23:40] VITALS: BP 145/78
[2024-11-09 07:56] VITALS: BP 174/84
--- NOTE | 2024-11-09 09:11 | W.PN.HOSP.TC ---
Today's Communication/Plan
-
Titrating antihypertensives. Discharge planning in progress
Assessment / Plan
Assessment / Plan
Gen-AAOx3, NAD
HEENT-NC, AT, anicteric, clear oral mm
Neck-supple
CV-reg, no M, +S1/S2
Lungs-clear B/L
Abd-soft, NT, ND
Ext-no edema
Musculoskeletal-no cyanosis, clubbing
Skin-warm and dry
Neuro-grossly non-focal
Psych-calm, cooperative
A/P:
Acute hypoxic respiratory insufficiency -due to community-acquired pneumonia, influenza infection. Stable on room air. Discussed about discharge home today but refused since he does not feel it is a safe discharge so waiting for rehab. Discussed
with case management and they are waiting for Monday determination.
Right lower lobe community-acquired pneumonia -continue oral antibiotics until tomorrow.
Acute influenza A infection -finished course of Tamiflu.
Mild elevated CPK-no need to treat
Hyponatremia -suspect SIADH related to acute illness, pneumonia. Sodium stable. Serum osmolality 271. Urine osmolality 614, urine sodium 69. Fluid restriction. Latest Na stable at 133
Elevated blood pressure -likely undiagnosed and untreated essential hypertension. We have been titrating up his blood pressure medicine and now on lisinopril 10 mg p.o. daily and nifedipine 60 mg p.o. daily.
Elevated transaminases - GGT normal.
Severe right hip OA -patient states he is overdue for hip replacement. Pain intensity has been stable.
Tobacco dependence -reportedly quit smoking 2 weeks ago.
Alcohol use disorder -reportedly last drink was 2 weeks ago.
Full code
Anticipated Discharge: 24 - 48 hours
Subjective/Interval History
-
Date of Service: November 09, 2024
Patient does not feel overall well but does not know how to pinpoint specific complaints. Less shortness of breath and cough. Afebrile
Objective Data
-
Vital Signs:
Vital Signs
Temp Pulse Resp BP Pulse Ox
98.5 F 63 18 174/84 97
11/09/24 07:56 11/09/24 07:56 11/09/24 07:56 11/09/24 07:56 11/09/24 07:56
I&O
11/08/24 11/09/24 11/10/24
06:59 06:59 06:59
Intake Total 720 / 720 880 / 880
Output Total 700 / 700 1450 / 1450
Balance 20 / 20 -570 / -570
[2024-11-09] MEDS: PROCARDIA XL (EXTENDED RELEASE) 60 MG PO (09:12)
[2024-11-09] MEDS: OMNICEF 300 MG PO ×2 (09:13→20:24)
[2024-11-09] MEDS: HEPARIN 5000 UNITS SC ×2 (09:13→20:24)
[2024-11-09] MEDS: ZESTRIL 10 MG PO (09:14)
[2024-11-09] MEDS: ZITHROMAX 500 MG PO (09:18)
[2024-11-09 15:00] VITALS: BP 108/69
[2024-11-09 23:00] VITALS: BP 132/65
[2024-11-10 07:30] VITALS: BP 133/73
[2024-11-10] MEDS: ZESTRIL 10 MG PO (07:31)
[2024-11-10] MEDS: PROCARDIA XL (EXTENDED RELEASE) 60 MG PO (07:31)
[2024-11-10] MEDS: OMNICEF 300 MG PO (07:31)
[2024-11-10] MEDS: HEPARIN 5000 UNITS SC (07:32)
--- NOTE | 2024-11-10 08:51 | W.PN.HOSP.TC ---
Today's Communication/Plan
-
Discharge planning in progress
Assessment / Plan
Assessment / Plan
Gen-AAOx3, NAD
HEENT-NC, AT, anicteric, clear oral mm
Neck-supple
CV-reg, no M, +S1/S2
Lungs-clear B/L
Abd-soft, NT, ND
Ext-no edema
Musculoskeletal-no cyanosis, clubbing
Skin-warm and dry
Neuro-grossly non-focal
Psych-calm, cooperative
A/P:
Acute hypoxic respiratory insufficiency -due to community-acquired pneumonia, influenza infection. Stable on room air. Discussed about discharge home yesterday and today but refused since he feels it is unsafe discharge so waiting for rehab.
Discussed with case management and they are waiting for Monday determination.
Right lower lobe community-acquired pneumonia -finished course of oral antibiotics.
Acute influenza A infection -finished course of Tamiflu.
Mild elevated CPK-no need to treat
Hyponatremia -suspect SIADH related to acute illness, pneumonia. Sodium stable. Serum osmolality 271. Urine osmolality 614, urine sodium 69. Fluid restriction. Latest Na stable at 133
Elevated blood pressure -likely undiagnosed and untreated essential hypertension. We have been titrating up his blood pressure medicine and now stable on lisinopril 10 mg p.o. daily and nifedipine 60 mg p.o. daily.
Elevated transaminases - GGT normal.
Severe right hip OA -patient states he is overdue for hip replacement. Pain intensity has been stable but also one of the main reasons he feels needs rehab.
Tobacco dependence -reportedly quit smoking 2 weeks ago.
Alcohol use disorder -reportedly last drink was 2 weeks ago.
Change heparin to Lovenox for DVT prophylaxis.
Full code
Anticipated Discharge: Within 24 hours
Subjective/Interval History
-
Date of Service: November 10, 2024
Patient feels better overall. No cough or shortness of breath. Still issues with his hip. Afebrile.
Objective Data
-
Vital Signs:
Vital Signs
Temp Pulse Resp BP Pulse Ox
98.1 F 60 18 133/73 95
11/10/24 07:30 11/10/24 07:30 11/10/24 07:30 11/10/24 07:30 11/10/24 07:30
I&O
11/09/24 11/10/24 11/11/24
06:59 06:59 06:59
Intake Total 880 / 880 1240 / 1240
Output Total 1450 / 1450 1050 / 1050
Balance -570 / -570 190 / 190
[2024-11-10 13:04] VITALS: BMI 27.0
[2024-11-10 14:45] VITALS: BP 115/79; PULSE 70; O2SAT 97
[2024-11-10 15:37] VITALS: BP 121/67
[2024-11-10 15:49] VITALS: BP 121/67
[2024-11-10] MEDS: LOVENOX 40 MG SC (17:55)
[2024-11-10 23:07] VITALS: BP 143/72
[2024-11-11 07:30] VITALS: BP 141/84
[2024-11-11] MEDS: PROCARDIA XL (EXTENDED RELEASE) 60 MG PO (09:03)
[2024-11-11] MEDS: ZESTRIL 10 MG PO (09:03)
--- NOTE | 2024-11-11 10:49 | W.PN.HOSP.TC ---
Today's Communication/Plan
-
Discharge planning
Assessment / Plan
Assessment / Plan
Gen-AAOx3, NAD
HEENT-NC, AT, anicteric, clear oral mm
Neck-supple
CV-reg, no M, +S1/S2
Lungs-clear B/L
Abd-soft, NT, ND
Ext-no edema
Musculoskeletal-no cyanosis, clubbing
Skin-warm and dry
Neuro-grossly non-focal
Psych-calm, cooperative
Acute hypoxic respiratory insufficiency -due to community-acquired pneumonia, influenza infection. Stable on room air.
Right lower lobe community-acquired pneumonia -finished course of oral antibiotics.
Acute influenza A infection -finished course of Tamiflu.
Mild elevated CPK-no need to treat
Hyponatremia -suspect SIADH related to acute illness, pneumonia. Sodium stable. Serum osmolality 271. Urine osmolality 614, urine sodium 69. Fluid restriction. Latest Na stable at 133. Mild fluid restriction.
Elevated blood pressure -likely undiagnosed and untreated essential hypertension. We have been titrating up his blood pressure medicine and now stable on lisinopril 10 mg p.o. daily and nifedipine 60 mg p.o. daily.
Elevated transaminases - GGT normal.
Severe right hip OA -patient states he is overdue for hip replacement. Pain intensity has been stable but also one of the main reasons he feels needs rehab.
Tobacco dependence -reportedly quit smoking 2 weeks ago.
Alcohol use disorder -reportedly last drink was 2 weeks ago.
Change heparin to Lovenox for DVT prophylaxis.
Full code
Dispo -medically stable for discharge to SNF. Awaiting insurance authorization. Discussed with case management.
Anticipated Discharge: Today
Subjective/Interval History
-
Date of Service: November 11, 2024
Patient seen and examined. No complaints.
Objective Data
-
Vital Signs:
Vital Signs
Temp Pulse Resp BP Pulse Ox
98.3 F 62 18 141/84 97
11/11/24 07:30 11/11/24 07:30 11/11/24 07:30 11/11/24 07:30 11/11/24 07:30
I&O
11/10/24 11/11/24 11/12/24
06:59 06:59 06:59
Intake Total 1240 / 1240 960 / 960
Output Total 1050 / 1050 900 / 900
Balance 190 / 190 60 / 60
Review of Systems
-
History Source: Patient
All other systems: Reviewed and negative
--- NOTE | 2024-11-11 11:05 | CM ---
Update provided to patient insurance for updated auth. awaiting call back.
--- NOTE | 2024-11-11 12:17 | W.DS.TRANS ---
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
-
Discharge Instructions:
Discharge Diagnosis/Procedures Acute hypoxic respiratory insufficiency.
Community-acquired pneumonia. Acute influenza A
. Hyponatremia
Diet Low Cholesterol
Activity As tolerated
Blood Work Please PCP to order CBC, BMP within 1 week
Instructions:
Stand-Alone Forms:
Changes to Home Medications: No
Discharge Medications:
DC Medications w/original date entered in [employer]
nifedipine 30 mg tablet,extended release 60 mg (2 x 30 mg) PO DAILY 30 days #60 tabs 11/07/24
lisinopril 10 mg tablet 10 mg PO DAILY #30 tabs 11/08/24
Home Medication Changes
Pending Results: No
--- NOTE | 2024-11-11 13:35 | CM ---
Addendum entered by Vandana Heaton 11/11/24 13:42:
Updates sent via [employer].
Original Note:
TC from [facility]
Approved skilled rehab at [facility]
DOS 11/11/24-11/14/24
Updates to fax# [phone]
Authorization # [id number]
Ashley from [facility] updated
[facility]
report# [phone]
fax# [phone]
--- NOTE | 2024-11-11 14:13 | CM ---
Addendum entered by Ana Blas 11/11/24 14:58:
IMM given to patient to review. Patient to sign and provide to nurse.
Addendum entered by Ana Blas 11/11/24 14:22:
Patient to transport patient to SNF around 4pm. CM will review IMM with patient.
Original Note:
Patient for transfer today to [facility], awaiting time for ambulance transportation.
[2024-11-11 15:16] VITALS: BP 124/74
--- NOTE | 2024-11-11 16:49 | PTCARENOTE ---
Pts at bedside. Pt discharge order in, pt supposed to goto [facility] pt via transportation from . and pt decided that pt will appeal discharge. Dr Vicente and Car Examiner Ana made aware. Pt has appeal form at bedside.
[2024-11-11] MEDS: LOVENOX 40 MG SC (18:11)
[2024-11-11 23:28] VITALS: BP 121/64
[2024-11-12] MEDS: PROCARDIA XL (EXTENDED RELEASE) 60 MG PO (07:37)
[2024-11-12] MEDS: ZESTRIL 10 MG PO (07:37)
[2024-11-12 07:53] VITALS: BP 134/72
--- NOTE | 2024-11-12 08:02 | W.PN.HOSP.TC ---
Today's Communication/Plan
-
Discharge
Assessment / Plan
Assessment / Plan
Gen-AAOx3, NAD
HEENT-NC, AT, anicteric, clear oral mm
Neck-supple
CV-reg, no M, +S1/S2
Lungs-clear B/L
Abd-soft, NT, ND
Ext-no edema
Musculoskeletal-no cyanosis, clubbing
Skin-warm and dry
Neuro-grossly non-focal
Psych-calm, cooperative
Acute hypoxic respiratory insufficiency -due to community-acquired pneumonia, influenza infection. Stable on room air.
Right lower lobe community-acquired pneumonia -finished course of oral antibiotics.
Acute influenza A infection -finished course of Tamiflu.
Mild elevated CPK-no need to treat
Hyponatremia -suspect SIADH related to acute illness, pneumonia. Sodium stable. Serum osmolality 271. Urine osmolality 614, urine sodium 69. Fluid restriction. Latest Na stable at 133. Mild fluid restriction.
Elevated blood pressure -likely undiagnosed and untreated essential hypertension. We have been titrating up his blood pressure medicine and now stable on lisinopril 10 mg p.o. daily and nifedipine 60 mg p.o. daily.
Elevated transaminases - GGT normal.
Severe right hip OA -patient states he is overdue for hip replacement. Pain intensity has been stable but also one of the main reasons he feels needs rehab.
Tobacco dependence -reportedly quit smoking 2 weeks ago.
Alcohol use disorder -reportedly last drink was 2 weeks ago.
Change heparin to Lovenox for DVT prophylaxis.
Full code
Dispo -medically stable for discharge to SNF today. I explained to patient that there is no medical need for him to be in the hospital, he has been stable for discharge for at least the past 48 hours. Patient understands and is agreeable to
discharge to SNF today.
Anticipated Discharge: Today
Subjective/Interval History
-
Date of Service: November 12, 2024
Patient seen and examined. No complaints.
Objective Data
-
Vital Signs:
Vital Signs
Temp Pulse Resp BP Pulse Ox
97.7 F 58 18 134/72 96
11/12/24 07:53 11/12/24 07:53 11/12/24 07:53 11/12/24 07:53 11/12/24 07:53
I&O
11/11/24 11/12/24 11/13/24
06:59 06:59 06:59
Intake Total 960 / 960 1560 / 1560
Output Total 900 / 900 600 / 600
Balance 60 / 60 960 / 960
Review of Systems
-
History Source: Patient
All other systems: Reviewed and negative
--- NOTE | 2024-11-12 08:46 | CM ---
Chart reviewed and patient has been medically cleared for discharge patient to transfer to [facility] today, patient's spouse to transport, with a 5pm knot picker cloth from [facility] to [facility], counter caser spoke with admissions at
[facility] to confirm bed.
[facility]
Report [phone]

Plan; Patient to transfer to [facility] today at 5pm spouse to transport.
[2024-11-12] MEDS: LOVENOX SC (12:47)
[2024-11-12 13:34] VITALS: BP 129/62
[2024-11-12 15:38] VITALS: BP 132/67
== END 2024-11-12 16:46 | DRG 194 ==
LOC: 4 WEST ACU 11:43
PROVIDERS: Hospitalist; Physician Assistant; ADMITTING PHYSICIAN Hospitalist; ATTENDING PHYSICIAN Hospitalist; EMERGENCY PHYSICIAN Emergency Medicine; FAMILY PHYSICIAN Family Medicine
DX: J11.08 Influenza due to unidentified influenza virus with specified pneumonia (principal); E22.2 Syndrome of inappropriate secretion of antidiuretic hormone; M62.82 Rhabdomyolysis; F17.210 Nicotine dependence, cigarettes, uncomplicated; J18.9 Pneumonia, unspecified organism; R06.89 Other abnormalities of breathing; R09.02 Hypoxemia; M19.90 Unspecified osteoarthritis, unspecified site; L89.312 Pressure ulcer of right buttock, stage 2; L89.322 Pressure ulcer of left buttock, stage 2; L89.611 Pressure ulcer of right heel, stage 1; L89.621 Pressure ulcer of left heel, stage 1; Z11.52 Encounter for screening for COVID-19
CPT/HCPCS: 71046; 80048; 80053; 82550; 82977; 83930; 83935; 84300; 85025; 87070; 87205; 87449; 87502; 87811; 87899; 96361; 96374; 96375; 97116; 97530; 97535; 99284; 99406